=== PATIENT | male | born 1965 ===

== ENCOUNTER 2017-06-08 12:33 | Emergency (ER) | payer MEDICAID, OTHER ==
[2017-06-08 12:56] VITALS: BP 122/73; PULSE 69; RESP 19; TEMP 98.9; O2SAT 98
[2017-06-08] MEDS ORDERED: Amoxicillin-Clav 875-125 mg Tab PO STA (14:08)
--- NOTE | 2017-06-08 14:30 | ED PDOC ---
Arrival/HPI - General Chief Complaint: Eye Problem Time Seen by Provider: 06/08/17 14:04 Historian: Patient - History of Present Illness Narrative History of Present Illness (Text): 06/08/17 14:21 51yr old male presents today with a one-day history of bilateral eye redness and itching and watering with white discharge. Patient also complaining of sore throat and pain with swallowing. Patient also complaining of a dry cough. Patient denies chest pain or shortness of breath. Denies fevers or chills. Positive sick contacts. No abdominal pain. No nausea or vomiting. No headache or dizziness. No other complaints. pt denies trauma or injury. Time/Duration: Other (1 day) Symptom Onset: Gradual Symptom Course: Worsening Quality: Other (itchy eyes, burning throat) Severity Level: Mild Past Medical History - Provider Review Nursing Documentation Reviewed: Yes - Travel History Have you recently traveled outside [place] w/in the past 3 mons?: No - Infectious Disease Hx of Infectious Diseases: None - Tetanus Immunization Tetanus Immunization: Unknown - Psychiatric Hx Substance Use: No - Surgical History Hx Tonsillectomy: Yes - Anesthesia Hx Anesthesia: Yes Hx Anesthesia Reactions: No Hx Malignant Hyperthermia: No Family/Social History - Physician Review Nursing Documentation Reviewed: Yes Family/Social History: Unknown Family HX Smoking Status: Light Smoker < 10 Cigarettes Daily Hx Alcohol Use: Yes Frequency of alcohol use: Socially Hx Substance Use: No Allergies/Home Meds Allergies/Adverse Reactions: Allergies No Known Allergies Allergy (Verified 06/08/17 12:45) Review of Systems - Review of Systems Constitutional: absent: Fatigue, Fevers Eyes: Other (itchy eyes). absent: Vision Changes, Photophobia, Eye Pain ENT: Sore Throat, Sinus Congestion Respiratory: Cough. absent: SOB Cardiovascular: absent: Chest Pain, Palpitations Gastrointestinal: absent: Abdominal Pain, Nausea, Vomiting Genitourinary Male: absent: Dysuria Musculoskeletal: absent: Arthralgias Skin: Pruritis Neurological: absent: Headache, Dizziness Psychiatric: absent: Anxiety, Depression Physical Exam Vital Signs Reviewed: Yes Vital Signs Temp Pulse Resp BP Pulse Ox 06/08/17 13:01 98.9 F 69 19 122/73 98 06/08/17 12:40 98.9 F 69 19 122/73 98 Temperature: Afebrile Blood Pressure: Normal Pulse: Regular Respiratory Rate: Normal Appearance: Positive for: Well-Appearing, Non-Toxic, Comfortable Pain Distress: None Mental Status: Positive for: Alert and Oriented X 3 - Systems Exam Head: Present: Atraumatic, Other (no periorbital tenderness, erythema or edema. ) Pupils: Present: PERRL Extroacular Muscles: Present: EOMI Conjunctiva: Present: Injected Mouth: Present: Moist Mucous Membranes, Normal Lips, Normal Tounge, Normal Teeth. No: Drooling, Trismus Pharnyx: Present: ERYTHEMA. No: EXUDATE, TONSILS ENLARGED, Peritonsilar Swelling, Uvular Deviation, Muffled/Hoarse Voice, Strider, Soft Palate/Uvular Edema Nose (External): Present: Atraumatic Nose (Internal): Present: Normal Inspection Neck: Present: Normal Range of Motion, Trachea Midline. No: Lymphadenopathy Respiratory/Chest: Present: Clear to Auscultation, Good Air Exchange. No: Respiratory Distress, Accessory Muscle Use Cardiovascular: Present: Regular Rate and Rhythm, Normal S1, S2. No: Murmurs Abdomen: No: Tenderness Medical Decision Making ED Course and Treatment: 06/08/17 14:44 Patient is nontoxic well appearing in no distress. Vital signs are stable Tolerating p.o. fluids and solids Patient with sore throat with bilateral eye redness and itching and burning. Motrin 600 mg p.o. Augmentin. Decadron 10 mg IM will d/c home on augmentin for cough and pharyngitis. will give tobramycin for conjunctivitis. Patient reassessment: Patient feeling better after medications, vital signs stable. Moist mucous membranes. I advised follow up with primary care physician within the next 2 days, advised to increase fluids take medications as prescribed and return if symptoms worsen persist or if new symptoms develop Patient verbalizes understanding of discharge instructions and need for immediate followup. all aspects of this case were discussed the attending of record. IMPRESSION; pharyngitis, cough, conjunctivitis Motrin every 6 hours as needed for pain/fever reduction Increase fluids augmentin twice daily x10 days tobramycin 2 drops in both eyes 4 times daily x 7 days. Follow up primary care physician within the next 2 days Follow up with the ENT specialist within the next 2 days. Saltwater gargles, throat lozenges Return if symptoms worsen persist or if the symptoms develop - Medication Orders Current Medication Orders: Discontinued Medications Amoxicillin/Clavulanate Potassium (Augmentin 875 Mg-125 Mg Tab) 1 tab PO STAT STA PRN Reason: Protocol Stop: 06/08/17 14:09 Dexamethasone (Decadron Inj) 10 mg IM STAT STA Stop: 06/08/17 14:09 Ibuprofen (Motrin Tab) 600 mg PO STAT STA Stop: 06/08/17 14:09 Disposition/Present on Arrival - Present on Arrival Any Indicators Present on Arrival: No History of DVT/PE: No History of Uncontrolled Diabetes: No Urinary Catheter: No History of Decub. Ulcer: No History Surgical Site Infection Following: None - Disposition Have Diagnosis and Disposition been Completed?: Yes Diagnosis: Pharyngitis, Conjunctivitis, Cough Disposition: HOME/ ROUTINE Disposition Time: 14:47 Patient Plan: Discharge Condition: GOOD Discharge Instructions (ExitCare): Pharyngitis (ED), Conjunctivitis (ED), Acute Cough (ED) Additional Instructions: Motrin every 6 hours as needed for pain/fever reduction Increase fluids augmentin twice daily x10 days tobramycin 2 drops in both eyes 4 times daily x 7 days. Follow up primary care physician within the next 2 days Follow up with the ENT specialist within the next 2 days. Follow up with the eye doctor within the next 2 days. Saltwater gargles, throat lozenges Return if symptoms worsen persist or if the symptoms develop Prescriptions: Amoxicillin/Clavulanate [Augmentin 875 MG-125 MG] 1 tab PO BID #20 tab Ibuprofen [Motrin] 600 mg PO Q6H PRN #20 tab PRN Reason: pain/fever reduction Tobramycin 0.3% [Tobramycin 5 Ml] 2 drop OU QID #1 bottle Referrals: Gautam Mclean [Staff Provider] - Follow up with primary Stephen Cho DO [Staff Provider] - Follow up with primary Renee Casas MD [Staff Provider] - Follow up with primary Forms: [employer] (Bulgarian), WORK NOTE
== END 2017-06-08 15:09 | disposition home or self-care (01) ==
LOC: ED 12:33
DX: H10.9 Unspecified conjunctivitis (principal); J02.9 Acute pharyngitis, unspecified; R05 Cough; F17.210 Nicotine dependence, cigarettes, uncomplicated
CPT/HCPCS: 96372; 99284; J1100